=== PATIENT | female | born 1965 | race Caucasian/White ===

== ENCOUNTER → 2017-07-06 | Outpatient (CLI) | payer OTHER ==
[~2017-07-06] MED LIST: GLIP5TAB10 PO; LISI5TAB7 PO; TAMO20TA PO
== END | disposition home or self-care (01) ==
LOC: CFH 08:40
PROVIDERS: ATTEND Internal Medicine Hematology & Oncology
DX: Z12.31 Encounter for screening mammogram for malignant neoplasm of breast (principal); Z85.3 Personal history of malignant neoplasm of breast; Z90.12 Acquired absence of left breast and nipple
CPT/HCPCS: G0202

== ENCOUNTER 2020-01-25 12:25 | Day surgery (SDC) | payer OTHER ==
[~2020-01-25] VITALS: Ht 157.5 cm; Wt 72.6 kg
[2020-01-25 12:50] VITALS: BP 125/81
[2020-01-25] MEDS ORDERED: CEFAZOLIN PMX 1GM/50ML 50 ML IV STA (12:56)
[2020-01-25] MEDS ORDERED: SODIUM CHLORIDE 0.9% 1,000 ML IV ONE (12:57)
[2020-01-25] MEDS ORDERED: CEFAZOLIN PMX 1GM/50ML 50 ML ONE (12:58)
[2020-01-25] MEDS ORDERED: MIDAZOLAM 1 MG/ML, 5ML ONE ×2 (14:05→14:06)
[2020-01-25] MEDS ORDERED: FENTANYL PF 100 MCG/2ML ONE (14:05)
[2020-01-25] MEDS ORDERED: FLUMAZENIL 0.1 MG/1 ML, 5ML ONE (14:06)
[2020-01-25] MEDS ORDERED: NALOXONE 1 MG/ML, 2ML ONE (14:06)
[2020-01-25] MEDS ORDERED: LIDOCAINE 1%, 10ML ONE (14:22)
[2020-01-25] MEDS ORDERED: LIDOCAINE 1%, 20ML ONE (14:22)
== END 2020-01-25 17:10 | disposition home or self-care (01) ==
LOC: RAD 12:25
PROVIDERS: ATTEND Internal Medicine Hematology & Oncology
DX: C50.212 Malignant neoplasm of upper-inner quadrant of left female breast (principal); I10 Essential (primary) hypertension; E11.9 Type 2 diabetes mellitus without complications; Z17.0 Estrogen receptor positive status [ER+]; Z79.899 Other long term (current) drug therapy; Z90.49 Acquired absence of other specified parts of digestive tract; Z92.3 Personal history of irradiation; Z92.21 Personal history of antineoplastic chemotherapy; Z98.890 Other specified postprocedural states; Z80.3 Family history of malignant neoplasm of breast
CPT/HCPCS: 36561; 76937; 77001; 99156; 99157; C1788; J0690; J1642; J2250; J3010; J7030; J2310

== ENCOUNTER 2020-02-06 07:52 | Outpatient (CLI) | payer OTHER | END 2020-02-06 23:59 | disposition home or self-care (01) | LOC: ROC 07:52 | PROVIDERS: ATTEND Radiology Radiation Oncology | DX: C50.912 Malignant neoplasm of unspecified site of left female breast (principal); C79.51 Secondary malignant neoplasm of bone; G89.3 Neoplasm related pain (acute) (chronic); M89.8X9 Other specified disorders of bone, unspecified site | CPT/HCPCS: 77290; 99214; G0463 ==

== ENCOUNTER 2020-02-06 12:01 | Outpatient (CLI) | payer OTHER | END 2020-02-06 23:59 | disposition home or self-care (01) | LOC: CFH 12:01 | PROVIDERS: ATTEND Radiology Radiation Oncology | DX: C79.51 Secondary malignant neoplasm of bone (principal); M25.551 Pain in right hip; E11.9 Type 2 diabetes mellitus without complications ==

== ENCOUNTER 2020-03-14 07:47 | Outpatient (CLI) | payer OTHER | END 2020-03-14 23:59 | disposition home or self-care (01) | LOC: ROC 07:47 | PROVIDERS: ATTEND Radiology Radiation Oncology | DX: Z08 Encounter for follow-up examination after completed treatment for malignant neoplasm (principal); C79.51 Secondary malignant neoplasm of bone; I10 Essential (primary) hypertension; C50.912 Malignant neoplasm of unspecified site of left female breast; E11.9 Type 2 diabetes mellitus without complications; Z17.0 Estrogen receptor positive status [ER+]; Z90.49 Acquired absence of other specified parts of digestive tract; Z79.899 Other long term (current) drug therapy | CPT/HCPCS: 99212; G0463 ==

== ENCOUNTER → 2020-06-10 | Outpatient (CLI) | payer SELFPAY | END | disposition home or self-care (01) | LOC: ROC 06-04 07:29 | PROVIDERS: ATTEND Radiology Radiation Oncology | DX: Z02.9 Encounter for administrative examinations, unspecified (principal) ==